=== PATIENT | male | born 1985 | race Caucasian/White ===

== ENCOUNTER 2017-04-25 12:20 | Emergency (ER) | payer OTHER ==
[~2017-04-25] VITALS: Ht 177.8 cm; Wt 106.8 kg
[~2017-04-25 12:20] MED LIST: ARIP400S2 IM; KLO5T PO; LTH300C PO; OLAN5TAB PO
[2017-04-25 12:25] VITALS: BP 117/77; PULSE 120; RESP 14; O2SAT 96
--- NOTE | 2017-04-25 12:53 | ED.REPORT ---
HPI-General Illness Date of Service Apr 25, 2017 ED Provider: Gi Joseph MD The pt is a 31 y/o male w/ a hx of substance abuse and schizophrenia presenting to the ED seeking reassurance that he was not poisoned. He smoked a substance he received from a dealer two days ago and immediately felt "messed up and slow ". He also reports feeling fatigued and confused. The pt snorts .25 grams of crystal meth a day, had two 24 ounce cans of alcohol today, and last used crack cocaine in 2011. He recently stopped taking his Adderall medication a few days ago and denies taking his other medications. Nursing Notes Stated Complaint: SMOKED POISON Chief Complaint: General Complaint Nursing Notes Reviewed: Yes Allergies: Coded Allergies: No Known Allergies (Verified Allergy, Unknown, 01/09/15) Scheduled Olanzapine (Zyprexa) 5 Mg Tablet 10 MG PO BID Scheduled PRN Clonazepam (Clonazepam) 0.5 Mg Tab Unknown Dose PO BID PRN PRN For Anxiety General Time Seen by MD: 12:52 Chief Complaint Not feeling well Hx Obtained From: Patient Arrived By: Walk-in Sudden in Onset?: Yes Onset Occurred: 2 days ago Recent Healthcare: No recent doctor visit, No recent hospitalization Similar Sx Previous: No Past Medical History Past Medical History Pt denies, but old records show psychiatric illness with previous hospitalization as well as substance abuse. Previously treated for anxiety by Dr. Rian Gillette at [facility] with Kiran Reports: Mental illness (Schizoprenia ) Past Surgical History None reported Smoking History Current Every Day Smoker Social History Alcohol Use: >5 per day Drug Use: Denies drug use, Cocaine, Meth, THC Other Social History: Homeless Ambulatory Status Independent Review of Systems Full Review of Systems Constitutional: Reports: Fatigue Psychiatric: Reports: Confusion Complete sys rev & neg: except as marked. Physical Exam Vital Signs Vital Signs Date Time Temp Pulse Resp B/P Pulse Ox O2 Delivery O2 Flow Rate FiO2 04/25/17 12:25 36.5 120 14 117/77 96 Room Air Initial VS: Reviewed General/Constitutional: Awake, Alert No eye contact and won't remove sunglasses Slightly intoxicated Head / Eyes: Atraumatic, Normocephalic Averts eyes ENT: Atraumatic, Airway patent Neck: Atraumatic, Supple, Full range of motion Respiratory / Chest: Atraumatic, Breath sounds NL, Breath sounds = bilat, No respiratory distress, No rales, No rhonchi, No wheezing Cardiovascular: Heart rate NL, Regular rhythm, Heart sounds NL Abdomen: Atraumatic, Soft, Non-tender Skin: Atraumatic, Color NL, No rash, Warm, Dry Neurologic: Oriented X3, No motor deficits Psychiatric: Not suicidal, Not homicidal Abnormal Mood/Affect: Positive: Flat affect Goes from pressured to extremely slow speech Interpretation & Diagnostics Lab Results Interpretation Test 04/25/17 13:12 Hold Urine Received (Received) Re-Eval/Medical Decision Source of Hx: Old records Time of Eval: 13:57 Re-Evaluation/Progress Note: Pt rechecked. Informed pt of plan for treatment. F/U instructions and RTER warnings given. All questions addressed. Counseled Regarding: Diagnosis, Lab results, Need for follow-up, When/why to return to ED Discharge & Departure Primary Impression: Adverse effect of drug/medicinal Encounter type: initial encounter Qualified Code: T88.7XXA - Unspecified adverse effect of drug or medicament, initial encounter Disposition: Home Discharge Condition All VS Reviewed: Yes Condition: Stable Additional Instructions: Thank you for coming into the ED today. Your urine test came out completely clean and showed that you were not poisoned by any of the chemicals we can detect. You were worried about mercury- this will not boil/turn to smoke until 675 degrees and a box strapper will not get that hot. I suggest that you stop smoking to improve your overall health. I hope you feel better soon. Referrals: [facility] (PCP) [facility] Scribe Attestation Portions of this note were transcribed by Pineda Lawrence. I, Dr. Joseph personally performed the history, physical exam and medical decision-making; I reviewed and confirmed the accuracy of the information in the transcribed note. Signed by : Maria E Briceño, 04/25/17 and 1402. copies to: [facility] Gi Joseph MD Apr 25, 2017 12:53 Pineda Lawrence Apr 25, 2017 14:02
[2017-04-25] MEDS ORDERED: OLAN5TAB4 PO (13:03)
[2017-04-25 15:03] VITALS: BP 117/79; PULSE 107; RESP 16; O2SAT 97
== END 2017-04-25 15:04 | disposition home or self-care (01) ==
LOC: SED 12:20
DX: R53.83 Other fatigue (principal); T50.905A Adverse effect of unspecified drugs, medicaments and biological substances, initial encounter; F20.9 Schizophrenia, unspecified; F17.200 Nicotine dependence, unspecified, uncomplicated; Z59.0 Homelessness
CPT/HCPCS: 81002; 99283; G0463